=== PATIENT | female | born 2000 | race Asian ===

== ENCOUNTER 2022-05-06 22:41 | Observation (INO) | payer OTHER, SELFPAY ==
[2022-05-06 22:58] VITALS: BP 150/106; PULSE 121; RESP 18; TEMP 36.2; O2SAT 99
--- NOTE | 2022-05-06 23:01 | CRLHL7_ITS ---
For Patients: As a result of the Century Cures Act, medical imaging exams and procedure reports are released immediately into your electronic medical record. You may view this report before your referring provider. If you have questions, please contact your health care provider. INDICATION: Tonsillitis. Loss of voice. Evaluate for peritonsillar abscess. COMPARISON: None available. TECHNIQUE: CT examination of the neck is performed using spiral technique during the uneventful intravenous administration of 122 cc of Isovue 370. 3 mm thick axial sections were made along with coronal and sagittal sections. Please note that all CT scans at this facility use dose modulation, iterative reconstruction, and/or weight-based dosing when appropriate to reduce radiation dose to as low as reasonably achievable. FINDINGS: There is prominent swelling of the palatine tonsils. There is a small right peritonsillar abscess measuring 10 x 7 x 7 millimeters. There is moderate narrowing of the hypopharyngeal airway, without evidence of impending airway compromise. There is prominent enlargement of the adenoids with no sign of abscess. There is moderate right greater than left superior jugular chain lymphadenopathy. The largest lymph node on the right has a short axis diameter of 2.0 centimeters and the largest lymph node on the left has a short axis diameter of 1.7 centimeters. There is mild enlargement of submandibular lymph nodes bilaterally with short axis diameter of 1.0 centimeters, not large enough to be described as lymphadenopathy. There is no sign of cervical mass or adenopathy on today`s study. The salivary glands are normal in appearance. The visualized posterior fossa, mastoids, skull base, and orbits are normal in appearance. There is a mucous retention cyst in the inferior left maxillary sinus. The rest of the visualized paranasal sinuses are clear. The great vessels are unremarkable. The thyroid gland is normal in appearance. The visualized upper chest is clear. The visualized upper mediastinum is normal in appearance. The osseous structures are unremarkable. IMPRESSION: Prominent enlargement of the palatine tonsils bilaterally. Small right peritonsillar abscess measuring up to 1.0 centimeters in diameter. Moderate right greater than left superior jugular chain lymphadenopathy, probably reactive. Please note that all CT scans at this facility use dose modulation, iterative reconstruction, and/or weight-based dosing when appropriate to reduce radiation dose to as low as reasonably achievable. Dictated by Benito Valdez MD @ 05/07/2022 12:17:17 AM (Electronically Signed)
--- NOTE | 2022-05-06 23:02 | ED.GENADULT ---
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 Pt has a history of strep throat. Pain goes from her throat to her right ear. Pain is severe. Pt has a hard time swallowing but no trouble breathing, no cough, no major fever, no nausea or vomiting. Pt has noted that the tonsils on the right are more swollen than on the left. Pt has had no sick contacts and no other significant symptoms. Related Data Allergies Allergy/AdvReac Type Severity Reaction Status Date / Time No Known Drug Allergies Allergy Verified 05/06/22 23:04 Review of Systems Status of ROS: Reports: 10 or more systems reviewed and unremarkable except as noted in History and below [facility] Social History Smoking Status: Never smoker Do you use any of these nicotine containing products: None How often do you have a drink containing alcohol: monthly or less AUDIT-C Alcohol total score: 1 Non-prescribed substance use: denies use service: No Exam Narrative: Exam Narrative: EXAM GENERAL: Patient appears comfortable and well. EYES: No scleral icterus. ENT: Tympanic membrane normal on the left with erythema on the right. Asymetric tonsilar enlargement R greater than Left noted with exudate. Anterior cervical adenopathy noted. THYROID: no thyroid nodules or thyromegaly. LYMPH: No supraclavicular or cervical lymphadenopathy. SKIN: Visible skin seen during exam normal or with benign process only. EXT: No dependent lower extremity pedal edema. HEART: Regular rate and rhythm with no murmurs, rubs, or gallops. Tachycardic. LUNGS: Clear to auscultation bilaterally with no crackles or wheezes. ABD: Soft, non tender, non distended. PSYCH: Good eye contact, speech is not pressured. Const: Vital Signs, click to edit/add: Vital Signs - 24 hr 05/06/22 22:58 Temperature 97.2 F L Pulse Rate [Left P ulse Oximeter] 121 H Respiratory Rate 18 Blood Pressure [Ri ght Upper Arm] 150/106 H Pulse Oximetry 99 Oxygen Delivery Me thod Room Air Course Course Hospital Course: Pt seen and examined. IV placed. Normal saline given. CT of neck soft tissue with IV contrast ordered. Reevaluation(s) Reevaluation #1: 10 by 7 by [address] on CT. CBC, CMP, ESR, Blood cultures, Lactate collected. IV Zosyn given. Time: 00:30 Consultations Consultation #1: Spoke with Dr. Graham ENT who agrees with admit to hospitalist and IV Zosyn. Keep NPO with possible drainage tomorrow. Time: 00:43 Vital Signs Vital signs: Initial Vital Signs Temperature 97.2 F L 05/06/22 22:58 Temperature Source Temporal Artery Scan 05/06/22 22:58 Pulse Rate 121 H 05/06/22 22:58 Pulse Rhythm 05/06/22 22:58 Respiratory Rate 18 05/06/22 22:58 Blood Pressure 150/106 H 05/06/22 22:58 Blood Pressure Mean 120 05/06/22 22:58 Blood Pressure Position Semi-Fowlers 05/06/22 22:58 Pulse Oximetry 99 05/06/22 22:58 Oxygen Delivery Method 05/06/22 22:58 Vital Signs Temperature 97.2 F L 05/06/22 22:58 Pulse Rate 121 H 05/06/22 22:58 Respiratory Rate 18 05/06/22 22:58 Blood Pressure 150/106 H 05/06/22 22:58 Pulse Oximetry 99 05/06/22 22:58 Oxygen Delivery Method 05/06/22 22:58 Temperature 97.2 F L 05/06/22 22:58 Pulse Rate 121 H 05/06/22 22:58 Respiratory Rate 18 05/06/22 22:58 Blood Pressure 150/106 H 05/06/22 22:58 Pulse Oximetry 99 05/06/22 22:58 Oxygen Delivery Method 05/06/22 22:58 Medical Decision Making MDM Narrative Medical decision making narrative: 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 Pt has 10 by 7 by 7 abscess in the right tonsil. Rapid Strep, CBC, CMP, ESR, Lactate, Blood cultures collected. Pt started on Zosyn and admitted. Primay team to contact ENT again in the am. Differential Diagnosis Differential Diagnosis: Strep throat, viral pharyngitis, peritonsillar abscess, foreign body, sinus Discharge Plan Discharge Clinical Impression: Abscess, peritonsillar Patient Disposition: Admitted As Inpatient Condition: Stable Activity Level: No Restrictions Discharge Diet: Other Follow Up/Referrals: Derrick Hastings MD [Primary Care Provider] -
[2022-05-06] MEDS: 0.9 % SODIUM CHLORIDE 1000 ml 1,000 ML IV (23:42)
[2022-05-07] VITALS (8 sets, daily range): BP systolic 130–148; BP diastolic 84–96; PULSE 92–104; RESP 16–18; TEMP 36.8–37.2; O2SAT 98–100; BMI 36.5
[2022-05-07 01:01] LABS: Lactate* 2.8 mmol/L (0.5-1.9)
[2022-05-07 01:06] LABS: Basophils Percent Auto 0.2 % (0.0-3.0); Eosinophils Percent Auto 0.2 % (0.0-7.0); Hematocrit 43.1 % (33.0-51.0); Hemoglobin* 13.7 gm/dL (12.0-16.0); Lymphocytes Percent Auto 29.7 % (20-44); Mean Corpuscular HGB Conc 32 gm/dL (32-36); Mean Corpuscular Hemoglobin 27 pg (26-34); Mean Corpuscular Volume 85 fL (80-100); Monocytes Percent Auto 5.1 % (0.0-11.0); Neutrophils Percent Auto 63.8 % (42.0-72.0); Platelet Count* 522 K/uL (140-440); RDW Coefficient of Variation % 14.8 % (11.5-15.5); Red Blood Count 5.06 m/uL (4.00-5.20); White Blood Count* 13.62 K/uL (4.50-11.00)
[2022-05-07 01:09] LABS: Slide Review Reflex No
[2022-05-07] MEDS: PIPERACILLIN/TAZOBACTAM 3.375 GM in 0.9 % SODIUM CHLORIDE Mini-bag 100 ML IVPB ×5 (01:10→23:37)
--- NOTE | 2022-05-07 01:18 | W.PC.EDHO ---
Primary Language: Preferred Language: Orientation Status: [x] Alert & Oriented [] Slight Confusion [] Known Dx Dementia Transfers By: [x] Assist of 1 [] Assist of 2 [] Lift Active Medications Generic Name Dose Route Start Last Admin Trade Name Freq PRN Reason Stop Dose Admin Piperacillin Sod/Tazobactam 100 mls @ 200 mls/hr 05/07/22 00:37 05/07/22 01:10 Sod 3.375 gm/ Sodium Chloride IVPB 05/07/22 00:38 200 mls/hr ONCE ONE Administration Discontinued Medications Generic Name Dose Route Start Last Admin Trade Name Freq PRN Reason Stop Dose Admin Sodium Chloride 1,000 mls @ 1,000 mls/hr 05/06/22 23:07 05/06/22 23:42 0.9 % Sodium Chloride 1000 Ml IV 05/07/22 00:06 1,000 mls/hr .Q1H CJ Administration Description of Symptoms ED Triage Present Problem pt arrived with a hand written note because it is Description to difficult to speak. pt has a hx of tonsillitis. Pt reports having difficulty speaking, eating, drinking. Pt reports difficulty breathing. Female History Patient No Patient No Pain Pain Intensity 5 Pain Scale Used Numeric (1 - 10) Oxygen Administration Pulse Oximetry 99 Oxygen Delivery Method Room Air
[2022-05-07 01:43] LABS: Aspartate Amino Transferase* 30 U/L (12-35); Bilirubin Total* 0.4 mg/dL (0.1-1.5); Carbon Dioxide* 25 mmol/L (20-32); Creatinine* 0.6 mg/dL (0.5-1.5); Estimated Glomerular Filt Rate 131 ml/min; Total Protein* 8.7 g/dL (6.0-8.3)
[2022-05-07 01:44] LABS: Alanine Aminotransferase* 26 U/L (4-35); Alkaline Phosphatase* 95 U/L (40-150); Blood Urea Nitrogen* 7 mg/dL (5-24); Calcium* 9.2 mg/dL (8.4-10.6); Glucose* 97 mg/dL (60-115)
[2022-05-07 01:45] LABS: Albumin* 4.4 g/dL (3.3-5.0); Chloride* 107 mmol/L (96-114); Sodium* 143 mmol/L (135-149)
[2022-05-07 01:48] LABS: Erythrocyte SedimentationRate* 70 mm/hr (2-20)
[2022-05-07 01:58] LABS: PCR FLU A Negative PCR FLU A (Negative); PCR FLU B Negative PCR FLU B (Negative); PCR RSV Negative PCR RSV (Negative)
[2022-05-07 02:00] LABS: SARS PCR* Negative SARS-CoV-2 (Negative)
--- NOTE | 2022-05-07 02:02 | ED.NURSE ---
Rn to RN report given. Pt headed to rm 260
--- NOTE | 2022-05-07 02:23 | PM.IMCN1 ---
Date of Consult Consult date: 05/07/22 Primary Care Provider: Derrick Hastings MD Consult Narrative Narrative: [facility] Hospitalist ADMISSION SUPPORT NOTE eHospitalist was contacted by Dr. Queen with request of admission support. Chief complaint: Sore throat with difficulty swallowing HPI: The patient reports that chronically she has issues with recurrent pharyngitis. Having at least 4 episodes per year. She had an episode in February and reports that since that episode occurred she has had a change in her voice where it has deepened. She developed sore throat a few days ago and then instead of improving like it typically does without minimal intervention, it got worse. It became hard for her to swallow and hard to breathe at night while sleeping. She also developed ear pain. She was evaluated by telehealth and was instructed to come to the ER. She was found to have peritonsillar abscess. Case was discussed with ENT by ED provider who will evaluate the patient. She has been placed on Zosyn. Review of systems other mention above is negative Home Medications: Reviewed see EMR for details Pertinent Medical History: Fibromyalgia Pertinent Social History: Denies history of smoking, occasional alcohol use, occasional marijuana use Review of Systems Status of ROS: Reports: 10 or more systems reviewed and unremarkable except as noted in History and below [facility] Social History Smoking Status: Never smoker Do you use any of these nicotine containing products: None How often do you have a drink containing alcohol: monthly or less AUDIT-C Alcohol total score: 1 Non-prescribed substance use: denies use service: No Meds Home Medications and Allergies Allergies Allergy/AdvReac Type Severity Reaction Status Date / Time No Known Drug Allergies Allergy Verified 05/06/22 23:04 Exam Narrative: Exam Narrative: Exam (performed via interactive video with assistance of bedside nurse): General: Alert, cooperative, no acute distress, obese HEENT: Oral mucosa pink and moist with significant pharyngeal erythema and swelling of tonsils with noticeable exudate bilaterally Lungs: Clear to auscultation bilaterally without crackle or wheeze CV: Regular rate and rhythm without loud murmur rub or gallop Ext: No pitting edema noted Skin: No rashes, bruises or lesions appreciated on gross visualization of exposed skin Neuro: Alert, oriented x 3. CN III -VII, XI, XII grossly intact, moves all extremities without any significant focal deficit appreciated by nurse Const: Vital Signs, click to edit/add: Vital Signs - 24 hr 05/06/22 22:58 05/07/22 02:00 Temperature 97.2 F L Pulse Rate [Left P ulse Oximeter] 121 H 100 Respiratory Rate 18 16 Blood Pressure [Ri ght Upper Arm] 150/106 H 148/96 H Pulse Oximetry 99 99 Oxygen Delivery Me thod Room Air Room Air Labs Labs: Short CBC 05/07/22 Range/Units 00:20 WBC 13.62 H (4.50-11.00) K/uL Hgb 13.7 (12.0-16.0) gm/dL Hct 43.1 (33.0-51.0) % Plt Count 522 H (140-440) K/uL BMP 05/07/22 00:20 Sodium 143 Potassium 4.0 Chloride 107 Carbon Dioxide 25 BUN 7 Creatinine 0.6 Glucose 97 Calcium 9.2 Liver Function 05/07/22 Range/Units 00:20 Total Bilirubin 0.4 (0.1-1.5) mg/dL AST 30 (12-35) U/L ALT 26 (4-35) U/L Alkaline Phosphatase 95 (40-150) U/L Albumin 4.4 (3.3-5.0) g/dL Assessment and Plan Assessment and plan (1) Abscess, peritonsillar: Status: Acute Plan Recent lab/CT scan soft tissue neck: Reviewed see EMR for details Assessment and Plan: 1. Peritonsillar abscess-continue Zosyn. Pain control with ibuprofen, tramadol. ENT to evaluate 2. Leukocytosis-secondary to infection. Monitor 3. Thrombocytosis-likely reactive secondary to #1 4. Elevated lactic acid-likely secondary to #1. This should improve with IV fluids. Recheck with a.m. labs 5. Fibromyalgia-monitor 6. DVT prophylaxis SCDs, consider pharmacologic prophylaxis if she is not being taken to the surgery. Will leave for rounding provider to address 7. CODE STATUS full code discussed with patient Chart review was performed as well as evaluation of the patient via video. Thank you for involving ehospitalist. Please contact [phone] if further assistance is needed.
[2022-05-07] MEDS: 0.9 % SODIUM CHLORIDE 1000 ml 1,000 ML 100 ML IV (03:11)
[2022-05-07] MEDS: IBUPROFEN 400 MG TABLET 800 MG PO ×3 (03:17→23:21)
--- NOTE | 2022-05-07 05:05 | PC.NURSE ---
Admission note: Pt arrived at the unit from the ED at 0205 on a wheelchair accompanied by an ED staff. Alert and conscious on arrival but complained of headache, difficulty and pain swallowing and chills. Pasha assessment by Dr Bowman completed and continue the abx, N/S, and pain management. V/S stable but pt had loss her voice. Nurse assessment done and treatment started as prescribed. Pt oriented to her room and educated on hospital policies regarding smoking, visiting hours and bed alarm use. Pt made comfortable in bed.
[2022-05-07 07:45] LABS: Mono Screen* Negative (Negative)
[2022-05-07 09:43] LABS: Lactate* 1.9 mmol/L (0.5-1.9)
[2022-05-07 09:45] LABS: Basophils Percent Auto 0.3 % (0.0-3.0); Eosinophils Percent Auto 0.1 % (0.0-7.0); Hematocrit 37.2 % (33.0-51.0); Hemoglobin* 11.9 gm/dL (12.0-16.0); Immature Granulocytes Pct Auto 0.1 %; Lymphocytes Percent Auto 25.5 % (20-44); Mean Corpuscular HGB Conc 32 gm/dL (32-36); Mean Corpuscular Hemoglobin 27 pg (26-34); Mean Corpuscular Volume 84 fL (80-100); Monocytes Percent Auto 4.7 % (0.0-11.0); Neutrophils Percent Auto 69.3 % (42.0-72.0); Platelet Count* 458 K/uL (140-440); RDW Coefficient of Variation % 14.8 % (11.5-15.5); Red Blood Count 4.41 m/uL (4.00-5.20); White Blood Count* 13.45 K/uL (4.50-11.00)
[2022-05-07 09:50] LABS: Slide Review Reflex No
[2022-05-07 10:00] LABS: Albumin* 3.8 g/dL (3.3-5.0)
[2022-05-07 10:01] LABS: Chloride* 110 mmol/L (96-114); Potassium* 3.8 mmol/L (3.6-5.1); Sodium* 140 mmol/L (135-149)
[2022-05-07 10:03] LABS: Aspartate Amino Transferase* 18 U/L (12-35); Bilirubin Total* 0.8 mg/dL (0.1-1.5); Carbon Dioxide* 22 mmol/L (20-32); Creatinine* 0.5 mg/dL (0.5-1.5); Est. Creatinine Clearance* 166.62; Estimated Glomerular Filt Rate 137 ml/min; Total Protein* 7.6 g/dL (6.0-8.3)
[2022-05-07 10:04] LABS: Alanine Aminotransferase* 23 U/L (4-35); Alkaline Phosphatase* 80 U/L (40-150); Blood Urea Nitrogen* 5 mg/dL (5-24); Calcium* 8.3 mg/dL (8.4-10.6); Glucose* 101 mg/dL (60-115)
--- NOTE | 2022-05-07 10:08 | P.IMHP_ITS ---
Hospitalist- H&P: HPI History of Present Illness Date Seen: 05/07/22 Chief complaint: Tonsillitis, lost voice Narrative: Olga Elizabeth is a 22 year old female admitted through the emergency room with a 5 day history of worsening sore throat. She has had trouble swallowing and talking. In the emergency department she was found to have fairly severe tonsillitis as well as a 1 cm right peritonsillar abscess. Overnight she has been treated with piperacillin tazobactam and IV fluids. She feels much better today. She is now able to tolerate clear liquids without much difficulty. She is able to speak better today. Review of Systems Narrative: She reports no other recent medical problems other than those noted above. She was recently diagnosed with sleep apnea but is not currently on treatment for that. 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 She is from [place] originally. She intends to study at [employer] in the fall. Highest level of school completed/degree received: high school graduate Smoking Status: Never smoker Do you use any of these nicotine containing products: None Second hand tobacco smoke exposure: No How often do you have a drink containing alcohol: monthly or less How often do you have six or more drinks on one occasion: Never AUDIT-C Alcohol total score: 1 Non-prescribed substance use: marijuana (any form) Caffeine: No service: No Meds Home Medications and Allergies Home Medications Medication Instructions Recorded Confirmed Type citalopram 10 mg tablet 10 mg PO DAILY 05/07/22 05/07/22 History dextroamphetamine-amphetamine ER 20 mg PO DAILY 05/07/22 05/07/22 History 20 mg 24hr capsule,extend release hydroxyzine HCl 10 mg tablet See Rx Instructions .Route .COMPLEX 05/07/22 05/07/22 History levonorgestrel 0.15 mg-ethinyl 1 tab PO DAILY 05/07/22 05/07/22 History estradiol 0.03 mg tablet (Clare (28)) Home Medication Comments: She is currently on the inactive portion of her oral contraceptive pack Allergies Allergy/AdvReac Type Severity Reaction Status Date / Time No Known Drug Allergies Allergy Verified 05/06/22 23:04 Exam Narrative: Exam Narrative: She is alert and appears in no distress. She had a muffled voice. Eyes are normal. Oropharynx notable for very prominent bilateral tonsillar enlargement with erythema and slight exudate. No obvious asymmetry to the tonsillar enlargement. Tonsils meet in the midline. Neck is supple without mass or adenopathy. There is no stridor. There is no tenderness. Respirations are clear to auscultation. Cardiovascular: S1, S2, regular rate and rhythm. No murmur gallop or rub. Abdomen: Bowel sounds active. Abdomen is soft without tenderness or mass. Extremities without edema. She has intact pulses. She moves all 4 extremities well. No rash. Const: Vital Signs, click to edit/add: Vital Signs - 24 hr 05/06/22 22:58 05/07/22 02:00 05/07/22 02:14 Temperature 97.2 F L 98.4 F Pulse Rate [Left P ulse Oximeter] 121 H 100 Pulse Rate [Right Pulse Oximeter] 103 H Respiratory Rate 18 16 18 Blood Pressure [Ri ght Arm] 137/88 Blood Pressure [Ri ght Upper Arm] 150/106 H 148/96 H Pulse Oximetry 99 99 99 Oxygen Delivery Me thod Room Air Room Air Room Air 05/07/22 03:00 05/07/22 07:00 Temperature 98.4 F 98.9 F Pulse Rate [Left P ulse Oximeter] Pulse Rate [Right Pulse Oximeter] 103 H 104 H Respiratory Rate 18 16 Blood Pressure [Ri ght Arm] 137/88 132/84 Blood Pressure [Ri ght Upper Arm] Pulse Oximetry 99 99 Oxygen Delivery Me thod Room Air Room Air Documenting provider has reviewed patient's vital signs: yes Hospitalist - H&P: Result Labs Labs: Short CBC 05/07/22 05/07/22 Range/Units 00:20 09:36 WBC 13.62 H 13.45 H (4.50-11.00) K/uL Hgb 13.7 11.9 L (12.0-16.0) gm/dL Hct 43.1 37.2 (33.0-51.0) % Plt Count 522 H 458 H (140-440) K/uL BMP 05/07/22 00:20 Sodium 143 Potassium 4.0 Chloride 107 Carbon Dioxide 25 BUN 7 Creatinine 0.6 Glucose 97 Calcium 9.2 Liver Function 05/07/22 Range/Units 00:20 Total Bilirubin 0.4 (0.1-1.5) mg/dL AST 30 (12-35) U/L ALT 26 (4-35) U/L Alkaline Phosphatase 95 (40-150) U/L Albumin 4.4 (3.3-5.0) g/dL Assessment and Plan Assessment and plan (1) Abscess, peritonsillar: Status: Acute Plan Continue in hospital for IV antibiotics and management of peritonsillar abscess. Monitor airway and swallowing. Consult ENT if not getting better. Total time spent today is 60 minutes, 40 minutes in coordination of care discussing with patient and other providers ongoing evaluation management of peritonsillar abscess
--- NOTE | 2022-05-07 14:45 | PC.NURSE ---
Pt eval by Dr. Wade Salcedo & swollen tonsils visualized by hospitalist. Labs drawn as ordered. Throat discomfort managed by prn ibuprofen 800mg. Pt slept at intervals this shift. Advanced to CL diet, pt prefers warm beverages. Pt handling secretions however her voice has changed recently and she is soft-spoken with mumbled words. 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 UAL in room. Urine is pink secondary to menses. IV Zosyn infused w/o difficulty. Maintenance IVF completed. Report will be provided to oncoming shift RN.
[2022-05-07] MEDS: BENZOCAINE/MENTHOL 1 EACH LOZENGE MUCOUS MEM (15:38)
[2022-05-07] MEDS: guaiFENesin 100 MG/ML CUP PO (15:38)
[2022-05-07] MEDS: SODIUM CHLORIDE 0.9 % (FLUSH) 10 ML SYRINGE 5 ML IVF ×2 (18:13→23:38)
[2022-05-07] MEDS: guaiFENesin 600 MG TAB.ER.12H PO (21:16)
--- NOTE | 2022-05-07 22:30 | PC.NURSE ---
Shift [id number]- Patient's speech is somewhat muffled. She states pain is improved and rates it 1/10- declines need for pain medication throughout shift. She is tolerating clear liquid diet. She states she is having congestion/ stuffy nose- MD notified- see new order. She is up ad zoya.
[2022-05-07] MEDS: 0.9 % SODIUM CHLORIDE 250 ml IV (23:37)
[2022-05-08 02:32] VITALS: BP 139/71; PULSE 88; RESP 16; TEMP 36.8; O2SAT 98
[2022-05-08] MEDS: SODIUM CHLORIDE 0.9 % (FLUSH) 10 ML SYRINGE 5 ML IVF ×2 (05:55→08:53)
[2022-05-08] MEDS: PIPERACILLIN/TAZOBACTAM 3.375 GM in 0.9 % SODIUM CHLORIDE Mini-bag 100 ML IVPB ×2 (05:55→12:42)
--- NOTE | 2022-05-08 07:00 | PC.NURSE ---
Shift note: Pt confirmed she is doing well this morning, however, still have muffled voice. Pain has been tolerated very well, only 1 time Ibuprofen was requested.
[2022-05-08 08:45] VITALS: BP 127/86; PULSE 106; RESP 18; TEMP 37.1; O2SAT 99
[2022-05-08] MEDS: IBUPROFEN 400 MG TABLET 800 MG PO (08:52)
[2022-05-08 11:00] VITALS: BP 122/85; PULSE 99; RESP 18; TEMP 36.6; O2SAT 96
[2022-05-08] MEDS: guaiFENesin 600 MG TAB.ER.12H PO (12:41)
--- NOTE | 2022-05-08 13:46 | PM.DS1 ---
DS: Providers Provider Date Seen: 05/08/22 Date of admission: 05/07/22 02:02 Primary care physician: Derrick Hastings MD Admitting Clinician: Wade Salcedo MD Attending Physician on discharge: Wade Salcedo MD Date of Discharge: 05/08/22 DS: Diagnosis Discharge Diagnosis (1) Abscess, peritonsillar: Status: Acute (2) Tonsillar hypertrophy: Status: Acute Problem details: Chronic (3) Sleep apnea: Status: Acute Problem details: Had outpatient home sleep study showing sleep apnea. I recommend ENT evaluation for tonsillectomy due to severe tonsillar hypertrophy contributing to sleep apnea DS: Summary Hospital Course Hospital Course: 22-year-old female admitted to the hospital with worsening throat pain and difficulty swallowing. On admission she was found to have a 1 cm right peritonsillar abscess as well as very prominent tonsillar hypertrophy. She was treated with IV Zosyn and had relatively rapid improvement in her symptoms. She still has prominent tonsillar hypertrophy which is thought to be acute on chronic. Status at Discharge Cognitive/behavioral status at discharge: Baseline Functional status at discharge: independent ambulation Overall status at discharge: patient is back to baseline Time Spent with Patient Time attestation: Total time spent providing and/or coordinating discharge services: Time spent: Greater than 30 minutes Exam Narrative: Exam Narrative: She is alert and appears in no distress. She still has slight muffling of her voice. Tonsils are enlarged and soft some exudate. There are no longer meeting in the midline of her throat. She has no throat pain or tenderness with palpation. She has some prominence in her cervical nodes without obvious adenopathy. Const: Vital Signs, click to edit/add: Vital Signs - 24 hr 05/07/22 15:25 05/07/22 19:05 05/07/22 23:00 Temperature 99 F 98.3 F 98.2 F Pulse Rate [Left A pical] Pulse Rate [Right Pulse Oximeter] 94 101 H 94 Respiratory Rate 18 18 16 Blood Pressure [Ri ght Arm] 130/88 135/85 143/88 H Pulse Oximetry 98 100 100 Oxygen Delivery Me thod Room Air Room Air Room Air 05/07/22 23:00 05/08/22 02:32 05/08/22 08:45 Temperature 98.2 F 98.7 F Pulse Rate [Left A pical] 106 H Pulse Rate [Right Pulse Oximeter] 88 106 H Respiratory Rate 16 16 18 Blood Pressure [Ri ght Arm] 139/71 127/86 Pulse Oximetry 98 99 Oxygen Delivery Me thod Room Air Room Air 05/08/22 11:00 Temperature 98 F Pulse Rate [Left A pical] 99 Pulse Rate [Right Pulse Oximeter] 99 Respiratory Rate 18 Blood Pressure [Ri ght Arm] 122/85 Pulse Oximetry 96 Oxygen Delivery Me thod Room Air Documenting provider has reviewed patient's vital signs: yes DS: Data Data Completed and Pending Labs on day of discharge: Preliminary micro results at discharge 05/07/22 00:45 Blood Culture - Preliminary Blood NO GROWTH AFTER 24 HOURS Discharge Plan Discharge Disposition: Home, Self-Care Date of Admission: 05/07/22 02:02 Attending Provider on Discharge: Wade Salcedo Primary Care Provider: Derrick Hastings Condition: Stable Anticipated Discharge Date/Time: 05/08/22 13:50 Discharge Medications: New amoxicillin-pot clavulanate 875-125 mg tablet 1 tab PO BID Qty: 14 0RF Continued dextroamphetamine-amphetamine 20 mg capsule,extended release 24hr 20 mg PO DAILY Label Comments: TAKE 1 CAPSULE BY MOUTH EVERY DAY hydroxyzine HCl 10 mg tablet See Rx Instructions .ROUTE .COMPLEX Label Comments: TAKE 1 TO 2 TABLETS BY MOUTH TWICE DAILY NEEDED FOR ANXIETY OR SLEEP Rx Instructions: 10-20MG TWICE DAILY NEEDED levonorgestrel-ethinyl estrad [Yasvelo (28)] 0.15-0.03 mg tablet 1 tab PO DAILY citalopram 10 mg tablet 10 mg PO DAILY Label Comments: TAKE ONE TABLET BY MOUTH EVERY DAY Discharge Orders: Discharge Order (Routine); Ordered 05/08/22 Ordered By: Wade Salcedo Activity Level: No Restrictions Discharge Diet: Regular and Other Follow Up Appointments: Derrick Hastings MD [Primary Care Provider] - (See your doctor this next week if your throat is not back to normal.) Forms: [employer] Info Instructions
--- NOTE | 2022-05-08 15:15 | PC.NURSE ---
Pt received prn ibuprofen and prn Mucinex on day shift. Advanced to full liquid diet. No N/V reported, pt slept at intervals. IV Zosyn infused w/o difficulty. Eval by Dr. Salcedo. Pt & her boyfriend Pancho verbalized understanding of d/c diagnosis, ATB prescription, home meds, f/up plan w/ Dr. Hastings and sx to report urgently to physician. [facility] arranged for pt by Dr. Salcedo. Ambulatory discharge @ [address] [facility] with significant other as transportation.
--- NOTE | 2022-05-08 18:46 | PC.NURSE ---
Prescription changed to [facility] and [facility] prescription cancelled.
== END 2022-05-08 15:15 | disposition home or self-care (01) ==
LOC: ED 05-07 00:47 → MEDSURG 05-07 02:03
PROVIDERS: Internal Medicine; Admitting Provider Family Medicine; Emergency Provider Internal Medicine; PCP Family Medicine; Visit Provider Family Medicine
DX: J36 Peritonsillar abscess (principal); J35.1 Hypertrophy of tonsils; G47.30 Sleep apnea, unspecified; D72.829 Elevated white blood cell count, unspecified; R74.02 Elevation of levels of lactic acid dehydrogenase [LDH]; D75.839 Thrombocytosis, unspecified; H92.01 Otalgia, right ear; M79.7 Fibromyalgia; Z86.19 Personal history of other infectious and parasitic diseases; F12.929 Cannabis use, unspecified with intoxication, unspecified; F90.9 Attention-deficit hyperactivity disorder, unspecified type
CPT/HCPCS: 36415; 70491; 80053; 83605; 85025; 85651; 86308; 87040; 87502; 87634; 87635; 96361; 96365; 96366; 99283; 99284; A9270; G0378; J2543; J7030; J7050; Q9967